=== PATIENT | male | born 1940 | race American Indian/Alaskan Native ===

== ENCOUNTER 2018-06-06 10:16 | Outpatient (CLI) | payer MEDICARE | END 2018-06-06 10:17 | disposition home or self-care (01) | LOC: C.PAT 10:16 | DX: D48.7 Neoplasm of uncertain behavior of other specified sites (principal) ==

== ENCOUNTER 2018-06-08 09:28 | Day surgery (SDC) | payer MEDICARE ==
[2018-06-06 10:29] VITALS: BMI 26.6
[2018-06-08] MEDS ORDERED: Midazolam 2 MG/2 ML VIAL ONE ×2 (11:35→12:12)
[2018-06-08] MEDS ORDERED: Propofol 10 mg/ml Inj (20 ML) ONE (11:35)
[2018-06-08] MEDS ORDERED: ceFAZolin 1 gm in NS 1 GM/100 ML BAG IVPB ONE (12:19)
[2018-06-08] MEDS ORDERED: Lidocaine Hydrochloride 10 ML INJ ONE (12:20)
[2018-06-08] MEDS ORDERED: Bupivacaine 0.25% 20 ML INJ IJ ONE (12:20)
[2018-06-08] MEDS ORDERED: Oxycodone/Acetaminophen 5/325 mg Tab PO PRN (13:00)
[2018-06-08 13:43] VITALS: RESP 18; TEMP 97.9; O2SAT 96
[2018-06-08 13:59] VITALS: BP 139/76; PULSE 73
--- NOTE | 2018-06-08 23:24 | OP ---
PROCEDURE DATE: 06/08/2018 PREOPERATIVE DIAGNOSIS: Right shoulder mass. POSTOPERATIVE DIAGNOSIS: Right shoulder mass. PROCEDURE PERFORMED: Wide and deep excision (radical resection) of 5-cm right shoulder tumor with advancement flap closure. SURGEON: Arnel Atkinson MD TYPE OF ANESTHESIA: Local sedation. ESTIMATED BLOOD LOSS: 20 mL. POSTOPERATIVE CONDITION: Stable. 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 He now will now undergo wide and deep excision. DESCRIPTION OF PROCEDURE: The patient was taken to the operating room. IV sedation was administered. He was placed in a prone position. Then 30 mL of 1% lidocaine and 0.25% Marcaine local anesthesia was infiltrated to the area broadly. An elliptical incision was then made surrounding the mass. It was carried down through the skin and subcutaneous tissue into the fascia and the mass was completely excised. Bleeding was controlled using the Bovie. A larger chest wall blood vessel which was noted to be bleeding was mobilized, isolated and repaired with 7-0 Prolene. Blood flow was confirmed by Doppler. Generous full-thickness tissue flaps were raised. Counter incisions were made and a 34 cm2 advancement flap closure was performed with multiple layers of Monocryl, subcuticular Monocryl and skin clips. The patient tolerated the procedure well. Returned to recovery room in stable condition. Arnel Atkinson MD
== END 2018-06-08 14:05 | disposition home or self-care (01) ==
LOC: C.SDS 09:28
PROVIDERS: ATTEND Surgery
DX: L72.0 Epidermal cyst (principal); I10 Essential (primary) hypertension; E78.5 Hyperlipidemia, unspecified; I25.10 Atherosclerotic heart disease of native coronary artery without angina pectoris
CPT/HCPCS: 14301; 82948; 88304; J2250; J3010